=== PATIENT | male | born 1985 | race Caucasian/White ===

== ENCOUNTER 2016-09-03 10:44 | Emergency (ER) | payer SELFPAY ==
[~2016-09-03] VITALS: Ht 198.1 cm; Wt 75.7 kg
[2016-09-03 10:48] VITALS: TEMP 36.8; Ht 198.1 cm; Wt 75.7 kg
--- NOTE | 2016-09-03 11:25 | DIAGNOSTIC IMAGING REPORT ---
RIGHT HAND MIN 3 VIEWS ROUTINE CLINICAL HISTORY: Right hand pain following injury. COMPARISON: None FINDINGS: There is a mildly displaced, comminuted fracture through the distal shaft of the right fifth metacarpal with associated mild angulation. Soft tissue swelling is noted. No additional fractures are identified. Carpal bones are intact. IMPRESSION: Mildly displaced comminuted fracture of the distal shaft of the right fifth metacarpal. Electronically signed by: Chon Rankin M.D. 09/03/2016 11:24 AM Dictated Date/Time: 09/03/2016 11:23 AM
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
[2016-09-03 12:35] VITALS: BP 131/78; PULSE 73; O2SAT 99
== END 2016-09-03 12:35 | disposition home or self-care (01) ==
LOC: C.EDB 10:46 → C.EDD 12:35
DX: S62.326A Displaced fracture of shaft of fifth metacarpal bone, right hand, initial encounter for closed fracture (principal); V18.4XXA Pedal cycle driver injured in noncollision transport accident in traffic accident, initial encounter; F17.210 Nicotine dependence, cigarettes, uncomplicated